=== PATIENT | male | born 1995 | race Caucasian/White ===

== ENCOUNTER 2019-10-27 09:07 | Observation (INO) | payer BC, SELFPAY ==
[2019-10-27 10:47] LABS: #Eosinphils 0.2 thou/uL (0.0-0.7); #Lymphocytes 1.3 thou/uL (1.20-3.40); #Monocytes 0.7 thou/uL (0.11-0.59); %Basophils 0.5 % (0.0-1.0); %Eosinophils 2.6 % (0.0-10.0); %Lymphocytes 13.9 % (21.0-51.0); %Monocytes 7.1 % (0.0-10.0); %Neutrophils 75.9 % (42.0-75.0); Hemoglobin 15.9 g/dL (14.0-18.0); Mean Corpuscular HGB CONC 33.7 g/dL (32.0-36.0); Mean Corpuscular Hemoglobin 31.6 pg (27.0-31.0); Mean Corpuscular Volume 93.7 fL (78.0-98.0); Mean Platelet Volume 8.3 fL (7.4-10.4); Platelet Count 234 thou/uL (130-400); RBC Distribution Width 11.5 % (11.5-14.5); Red Blood Cell (RBC) Count 5.04 mill/uL (4.70-6.10); White Blood Cell (WBC) Count 9.2 thou/uL (4.8-10.8)
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
[2019-10-27 11:05] LABS: ALT (SGPT) 39 U/L (8-55); AST (SGOT) 20 U/L (5-34); Albumin 4.5 g/dL (3.5-5.0); Alkaline Phosphatase 96 U/L (40-110); Anion Gap 11 mmol/L (10-20); BUN (Urea Nitrogen) 9 mg/dL (8.9-20.6); Bilirubin, Total 0.4 mg/dL (0.2-1.2); Calc. Creatinine Clearance 0 mL/min (70-130); Calcium 9.5 mg/dL (7.8-10.44); Carbon Dioxide 25 mmol/L (22-29); Chloride 104 mmol/L (98-107); Estimated GFR-MDRD Greater than 90; Globulin 2.4 g/dL (2.4-3.5); Glucose 83 mg/dL (70-105); Potassium 4.3 mmol/L (3.5-5.1); Protein, Total 6.9 g/dL (6.0-8.3); Sodium 136 mmol/L (136-145)
[2019-10-27] MEDS ORDERED: CEFAZOLIN 2 GM in Premix Bag 1 BAG IVPB SCH (12:00)
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
[2019-10-27] MEDS ORDERED: Piperacillin/Tazobactam 4.5 GM VIAL ONE (14:20)
[2019-10-27] MEDS ORDERED: Ondansetron ODT 4 MG TAB SL PRN (16:07)
[2019-10-27] MEDS ORDERED: Ondansetron PF 4 MG/2 ML Vial IVP PRN (16:07)
[2019-10-27] MEDS ORDERED: D5 1/2 NS w/20 mEq KCL 1,000 ML IV SCH (16:15)
[2019-10-27] MEDS: Morphine 4 MG/ML VIAL IV PRN ×3 (17:14→21:21)
[2019-10-27 18:13] VITALS: BMI 30.7
[2019-10-27] MEDS: Gentamicin Sulfate 80 MG in Premix Bag 1 BAG IVPB SCH (18:30)
[2019-10-27] MEDS: Vancomycin 1.5 GRAM/300 ML BAG 1.5 GM in Premix Bag 1 BAG IVPB SCH (19:12)
--- NOTE | 2019-10-27 20:25 | MRI ---
MR OF THE RIGHT HAND WITHOUT CONTRAST: 10/27/19 INDICATION: History of right arm pain since yesterday. History of surgery on the right arm five weeks ago without fever. Patient has swelling of the right hand. COMPARISON: Right hand radiograph dated 09/20/2019 and 10/27/2019. FINDINGS: As seen on the comparison radiograph is extensive susceptibility artifact from smooth Lucy wires transfixing the comminuted thumb metacarpal fracture. There is also a comminuted trapezial fracture present. There is extensive edema seen in the thenar musculature. No overt drainable fluid collection is evident. There is fluid signal intensity surrounding the tendon sheaths at the level of just prox imal to the transverse carpal ligament. A small amount of fluid distention seen within the FDS, FDP t endons of the index, long and ring finger as well as within the flexor pollicis tendon. There is als o extensive edema involving the dorsal aspect of the hand. There is abnormal edema involving the lumb rical and interosseous muscles of the hand. Hypothenar musculature appears within normal limits. The visualized extensor tendons appear roughly within normal limits. There is some subcutaneous edema al armando the dorsal aspect of the hand and wrist. IMPRESSION: 1. Findings suspicious for cellulitis and myositis of the right hand with extensive muscular suyapa ma seen involving the thenar musculature as well as the interosseous and lumbrical musculature of the index and long fingers. 2. Findings of mild flexor tenosynovitis involving the flexor pollicis of thumb and FDP and FDS tendons of the index, long and ring finger. 3. No overt drainable abscess is evident. 4. No overt signal abnormality to suggest the presence of osteomyelitis is evident. 5. Limitations to exam due to susceptibility artifact from the Lucy wires as well as motion artifact. POS: ADA
[2019-10-27] MEDS: Ketorolac Tromethamine 30 MG/ML VIAL IVP SCH (22:56)
[2019-10-28] MEDS: Gentamicin Sulfate 80 MG in Premix Bag 1 BAG IVPB SCH ×3 (01:20→17:44)
[2019-10-28] MEDS: Ketorolac Tromethamine 30 MG/ML VIAL IVP SCH ×3 (05:44→21:52)
[2019-10-28] MEDS: Vancomycin 1.5 GRAM/300 ML BAG 1.5 GM in Premix Bag 1 BAG IVPB SCH ×2 (05:45→18:48)
[2019-10-28 06:04] LABS: #Eosinphils 0.3 thou/uL (0.0-0.7); #Lymphocytes 1.2 thou/uL (1.20-3.40); #Monocytes 0.8 thou/uL (0.11-0.59); #Neutrophils 6.3 thou/uL (1.40-6.50); %Basophils 0.3 % (0.0-1.0); %Eosinophils 3.8 % (0.0-10.0); %Lymphocytes 13.5 % (21.0-51.0); %Monocytes 8.7 % (0.0-10.0); %Neutrophils 73.6 % (42.0-75.0); Hemoglobin 14.4 g/dL (14.0-18.0); Mean Corpuscular HGB CONC 33.4 g/dL (32.0-36.0); Mean Corpuscular Hemoglobin 31.9 pg (27.0-31.0); Mean Corpuscular Volume 95.4 fL (78.0-98.0); Mean Platelet Volume 8.3 fL (7.4-10.4); Platelet Count 204 thou/uL (130-400); RBC Distribution Width 11.6 % (11.5-14.5); Red Blood Cell (RBC) Count 4.51 mill/uL (4.70-6.10); White Blood Cell (WBC) Count 8.6 thou/uL (4.8-10.8)
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
[2019-10-28] MEDS ORDERED: ePHEDrine/0.9% NaCl/PF SYRINGE 50 mg/10 ml ONE (09:47)
[2019-10-28] MEDS ORDERED: PHENYLEPHRINE-NS 100 MCG/ML 10 ML SYRINGE ONE (09:47)
[2019-10-28] MEDS ORDERED: PROPOFOL 200 MG/20 ML VIAL ONE (09:47)
[2019-10-28] MEDS ORDERED: Ketorolac Tromethamine 30 MG/ML VIAL ONE (09:47)
[2019-10-28] MEDS ORDERED: Lidocaine 1% PF 5 ML VIAL ONE (09:47)
[2019-10-28] MEDS ORDERED: Ondansetron PF 4 MG/2 ML Vial ONE (09:47)
[2019-10-28] MEDS ORDERED: Dexamethasone 20 MG/5 ML VIAL ONE (09:47)
[2019-10-28] MEDS: Morphine 2 MG/ML SYRINGE SLOW IVP PRN ×2 (11:45→13:33)
[2019-10-28] MEDS ORDERED: Bacitracin Zinc Ointment 30 gm TUBE ONE (14:38)
[2019-10-28] MEDS ORDERED: Sodium Chloride 0.9% 10 ML ONE (14:38)
[2019-10-28] MEDS ORDERED: Bupivacaine PF 0.5% 30 ML VIAL ONE (14:38)
[2019-10-28] MEDS ORDERED: Midazolam HCl 2 mg/2 ml Vial ONE (14:44)
[2019-10-28] MEDS ORDERED: HYDROmorphone 0.5 MG/0.5 ML SYRINGE ONE (14:44)
[2019-10-28] MEDS ORDERED: Fentanyl 100 MCG/2 ML VIAL ONE (14:44)
[2019-10-28] MEDS ORDERED: Meperidine HCl/PF 25 MG/ML VIAL SLOW IVP PRN (16:46)
[2019-10-28] MEDS ORDERED: Morphine Sulfate 2 MG/ML SYRINGE SLOW IVP PRN (16:46)
[2019-10-28] MEDS ORDERED: Promethazine HCl 25 MG/ML VIAL SLOW IVP PRN (16:46)
[2019-10-28] MEDS ORDERED: Ondansetron HCl/PF 4 MG/2 ML Vial IVP PRN (16:46)
[2019-10-28] MEDS ORDERED: HYDROmorphone 2 MG/ML VIAL SLOW IVP PRN (16:46)
[2019-10-28] MEDS ORDERED: PACU-Morphine 4MG/ML VIAL SLOW IVP PRN (16:46)
[2019-10-28] MEDS ORDERED: Promethazine HCl 25 MG/ML VIAL IM PRN (16:46)
[2019-10-28] MEDS ORDERED: Morphine 2 MG/ML SYRINGE SLOW IVP PRN (17:36)
[2019-10-28] MEDS: HYDROcodone/Acetaminophen 10/325 mg Tablet PO PRN (18:49)
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
[2019-10-29] MEDS: Gentamicin Sulfate 80 MG in Premix Bag 1 BAG IVPB SCH (00:30)
[2019-10-29] MEDS: HYDROcodone/Acetaminophen 10/325 mg Tablet PO PRN (02:17)
[2019-10-29 05:34] LABS: Vancomycin, Trough 5.4 ug/mL
[2019-10-29] MEDS: Ketorolac Tromethamine 30 MG/ML VIAL IVP SCH (06:30)
[2019-10-29] MEDS: Vancomycin 1.5 GRAM/300 ML BAG 1.5 GM in Premix Bag 1 BAG IVPB SCH (06:43)
[2019-10-29 07:43] VITALS: BP 135/77; TEMP 97.9
== END 2019-10-29 10:30 | disposition home or self-care (01) ==
LOC: ERS 09:07 → SDC 13:53 → SURG B 15:40
PROVIDERS: ADMIT Family Medicine; ATTEND Emergency Medicine
PROC: 0JBJ0ZZ Excision of Right Hand Subcutaneous Tissue and Fascia, Open Approach (ICD-10-PCS; principal; 2019-10-29)
DX: T84.69XA Infection and inflammatory reaction due to internal fixation device of other site, initial encounter (principal); S61.001A Unspecified open wound of right thumb without damage to nail, initial encounter; I96 Gangrene, not elsewhere classified; F17.220 Nicotine dependence, chewing tobacco, uncomplicated
CPT/HCPCS: 36415; 80053; 80202; 85025; 85652; 86140; 96361; 96365; 96366; 96367; 96375; 96376; G0378; J1100; J1170; J1580; J1885; J2001; J2250; J2270; J2405; J2543; J2704; J3010; J3370; J3490; S0020